=== PATIENT | female | born 1995 | race Caucasian/White ===

== ENCOUNTER 2019-01-14 10:25 | Emergency (ER) | payer MEDICAID ==
[~2019-01-14] VITALS: Ht 160 cm; Wt 81.0 kg
[2019-01-14 10:45] VITALS: BP 124/63
== END 2019-01-14 13:07 | disposition left against medical advice (07) ==
LOC: ER 10:46
DX: R51 Headache (principal); Z53.21 Procedure and treatment not carried out due to patient leaving prior to being seen by health care provider
CPT/HCPCS: 81025